=== PATIENT | male | born 1995 | race Caucasian/White ===

== ENCOUNTER 2020-07-09 10:19 | Emergency (ER) | payer BC ==
[~2020-07-09] VITALS: Ht 177.8 cm; Wt 181.4 kg
[2020-07-09] MEDS ORDERED: ZESTRIL10 MG PO (10:56)
[2020-07-09] MEDS ORDERED: SINGULAIR10 M1 PO (10:56)
[2020-07-09] MEDS ORDERED: CETIRIZINE HYDR10 MG PO (10:56)
[2020-07-09] MEDS ORDERED: PROVENTIL HFA6.7 GM INH (10:56)
[2020-07-09] MEDS ORDERED: LATU40TA PO (10:56)
== END 2020-07-09 11:04 | disposition home or self-care (01) ==
LOC: ED 10:19
DX: F31.9 Bipolar disorder, unspecified (principal); I10 Essential (primary) hypertension; J45.909 Unspecified asthma, uncomplicated; Z76.0 Encounter for issue of repeat prescription